=== PATIENT | male | born 1960 | race African-American/Black ===

== ENCOUNTER 2022-04-11 08:01 | Emergency (ER) | payer OTHER ==
[2022-04-11] MEDS ORDERED: Ketorolac Tromethamine 30 MG/ML VIAL ONE (08:34)
[2022-04-11] MEDS ORDERED: predniSONE 20 MG TAB ONE (08:34)
== END 2022-04-11 08:58 | disposition home or self-care (01) ==
LOC: CSHERS 08:01
DX: M70.32 Other bursitis of elbow, left elbow (principal); E11.9 Type 2 diabetes mellitus without complications; I10 Essential (primary) hypertension; E78.5 Hyperlipidemia, unspecified; F17.200 Nicotine dependence, unspecified, uncomplicated
CPT/HCPCS: 96372; J1885; J7512